=== PATIENT | male | born 1995 | race Two or more races ===

== ENCOUNTER 2016-12-29 10:25 | Emergency (ER) | payer SELFPAY ==
[2016-12-29 10:31] VITALS: BP 141/78; PULSE 55; TEMP 97.7; BMI 24.3
--- NOTE | 2016-12-29 11:57 | PDOC ---
History of Present Illness - General Chief Complaint: RX Refill Stated Complaint: MOOD SWINGS Time Seen by Provider: 12/29/16 11:01 History Source: Patient Exam Limitations: No Limitations - History of Present Illness Initial Comments: \\ My chief complaint: out of Lamictal for 2 days History of present illness: Patient is a 21-year-old male with a history of mood disorder and substance use disorder here today after running out of Lamictal 25 mg twice a day 2 days ago. Patient reports that he feels as if his mood is "down" Pt. denies any suicidal thoughts or any previous suicide attempts. Pt. denies any symptoms of corinne. Pt. recently was discharged from a rehab to a sober house here in [place]. Pt. has an appt on 01/07/17 for an intake for mental health does not remember name of place. Timing/Duration: other (out of lamictal for 2 days ) Associated Symptoms: other (mood slightly depressed) Past History - Past Medical History Allergies/Adverse Reactions: Allergies lithium Allergy (Verified 12/29/16 10:31) Hives Home Medications: Ambulatory Orders Lamotrigine [Lamictal] 25 mg PO BID #28 tablet 12/29/16 Psychosocial History: Yes: other (mood disorder, substance use disorder ) Surgical History: Yes: No Surgical History - Family History Significant Family History: Yes: no pertinent family hx - Social History Smoking Status: Current every day smoker Number of Cigarettes Per Day: 6 *Review of Systems - Review of Systems Able to Perform ROS?: Yes Constitutional: No: Symptoms Reported HEENTM: No: Symptoms Reported Respiratory: No: Symptoms reported Cardiac (ROS): No: Symptoms Reported ABD/GI: No: Symptoms Reported : No: Symptoms Reported Musculoskeletal: No: Symptoms Reported Integumentary: No: Symptoms Reported Neurological: No: Symptoms reported Psychiatric: Yes: Mood Swings (feels "slightly down") Endocrine: No: Symptoms Reported *Physical Exam - Vital Signs Last Vital Signs Temp Pulse Resp BP Pulse Ox 97.7 F 55 L 20 141/78 100 12/29/16 10:27 12/29/16 10:27 12/29/16 10:27 12/29/16 10:27 12/29/16 10:27 - Physical Exam General Appearance: Yes: Appropriately Dressed Respiratory/Chest: positive: Lungs Clear, Normal Breath Sounds. negative: Chest Tender, Respiratory Distress Cardiovascular: positive: Regular Rhythm, Regular Rate, S1, S2 Comments:: 12/29/16 11:54 Casually dressed, cooperative good eye contact. Mood "slightly down "denies loosening of associations denies suicidal or homicidal ideations denies obsessions, compulsions, insight judgment not limited, speech normal rate and volume, alert/ oriented X 3, gait unimpaired. Integumentary: positive: Normal Color Plan - Order(s) Order(s): Orders Medication Instructions Recorded Lamotrigine [Lamictal] 25 mg PO BID 12/29/16 *DC/Admit/Observation/Transfer Diagnosis at time of Disposition: Encounter for medication refill, Mood disorder - Discharge Dispostion Disposition: HOME Condition at time of disposition: Stable - Prescriptions Prescriptions: Lamotrigine [Lamictal] 25 mg PO BID #28 tablet - Referrals - Patient Instructions Additional Instructions: Follow up with your mental health outpatient facility at her scheduled with on 01/07/17 for further evaluation Return to emergency room if symptoms worsen increased depression any suicidal thoughts or thoughts to act impulsively Patient voiced understanding of discharge instructions and all questions were answered Plan thank you for choosing [facility] emergency room for your medical needs today - Post Discharge Activity
== END 2016-12-29 12:05 | disposition home or self-care (01) ==
LOC: JERFT 10:25
DX: F39 Unspecified mood [affective] disorder (principal); Z76.0 Encounter for issue of repeat prescription; Z91.14 Patient's other noncompliance with medication regimen
CPT/HCPCS: 99281-25